=== PATIENT | female | born 1940 | race American Indian/Alaskan Native ===

== ENCOUNTER 2017-04-25 12:44 | Outpatient (CLI) | payer MEDICARE ==
--- NOTE | 2017-04-25 19:32 | XRay Report ---
FINAL REPORT EXAM: XR HAND 3+V RT HISTORY: PAIN IN RIGHT HAND TECHNIQUE: Right hand four views PRIORS: None. FINDINGS: Skeletal structures are osteopenic. There is marked degenerative change at the trapezium 1st metacarpal joint space with joint space narrowing and marginal osteophyte formation. There is degenerative subluxation at the joint space. No acute fracture is identified. No erosive bony change seen. The carpal bones demonstrate normal alignment. IMPRESSION: Degenerative changes at the 1st carpal metacarpal joint Osteopenia
--- NOTE | 2017-04-25 20:04 | XRay Report ---
FINAL REPORT EXAM: XR WRIST 3+V RT HISTORY: PAIN IN RIGHT WRIST TECHNIQUE: Right wrist four views PRIORS: None. FINDINGS: There is marked degenerative change at the trapezium 1st metacarpal joint space with osteophyte formation and joint space narrowing. There is degenerative subluxation. Carpal bones demonstrate normal alignment. Distal radius and are intact. No acute fractures are identified. IMPRESSION: Advanced degenerative changes at the 1st carpal metacarpal joint
== END 2017-04-25 12:45 | disposition home or self-care (01) ==
LOC: XRAY 12:44
PROVIDERS: ATTEND Internal Medicine
DX: M18.9 Osteoarthritis of first carpometacarpal joint, unspecified (principal); M85.842 Other specified disorders of bone density and structure, left hand

== ENCOUNTER 2017-05-10 12:38 | Outpatient (CLI) | payer MEDICARE ==
--- NOTE | 2017-05-10 14:24 | XRay Report ---
CHEST 2 VIEWS INDICATION: Cough. COMPARISON: None similar. FINDINGS: Frontal and lateral chest radiographs demonstrate exaggerated cardiomediastinal silhouette/aortic uncoiling/possible hypertension. Grossly normal heart size and clear lungs. Bilateral shoulder and mild multilevel spinal degenerative changes. CONCLUSION: No significant acute chest process, as described. Direct comparison with similar prior imaging would also be helpful, if available. Thank you for the opportunity to participate in this patient's care.
== END 2017-05-10 12:39 | disposition home or self-care (01) ==
LOC: XRAY 12:38
PROVIDERS: ATTEND Internal Medicine
DX: R05 Cough (principal); M47.894 Other spondylosis, thoracic region; M19.011 Primary osteoarthritis, right shoulder; M19.012 Primary osteoarthritis, left shoulder
CPT/HCPCS: 71046

== ENCOUNTER 2017-07-01 13:44 | Outpatient (CLI) | payer MEDICARE | END 2017-07-01 13:45 | disposition home or self-care (01) | LOC: LAB 13:44 | PROVIDERS: ATTEND Internal Medicine | DX: E11.9 Type 2 diabetes mellitus without complications (principal); G31.84 Mild cognitive impairment of uncertain or unknown etiology; Z79.899 Other long term (current) drug therapy | CPT/HCPCS: 36415; 82607; 84443 ==